=== PATIENT | female | born 1940 | race Caucasian/White ===

== ENCOUNTER 2018-03-11 15:27 | Emergency (ER) | payer OTHER, BC ==
[~2018-03-11] VITALS: Ht 154.9 cm; Wt 54.4 kg
--- NOTE | 2018-03-11 15:28 | NUR ---
PT BIBA TO BED 2 BY STRETCHER
[2018-03-11 15:30] VITALS: BP 178/93
--- NOTE | 2018-03-11 15:30 | NUR ---
78f biba with c/o hypoglycemia while working out at the gym. Per fire parts facilitator, BS=32 on scene. Patient ALOC confused and combative on scene. Negative MLAPSS on scene. Patient given D10 205cc en route. On arrival, bs=96. Pt is aox4 to person, place, situation, and date. gcs=15. No facial or smile asymmetry. Vinegar Maker equal and equal push/pull. PERRLA. Multiple abrasions to bl arms. Patient denies any neck,head, or back pain. ER MD Malone by bedside examining patient. Patient refused to change into gown. VSS. Will continue to monitor.
[2018-03-11] MEDS ORDERED: DEXT 5% / NACL 0.9% 500 ML IV ONE (15:35)
[2018-03-11] MEDS ORDERED: LOSA25TA22 PO (15:48)
[2018-03-11] MEDS ORDERED: METO25TE2 PO (15:48)
--- NOTE | 2018-03-11 16:02 | NUR ---
by bedside. awaiting discharge. gcs=15. rr are even and unlabored.
[2018-03-11 16:07] LABS: BASOPHILS # (AUTO) 0.1 K/uL (0.00-0.22); BASOPHILS % (AUTO) 1.6 % (0.0-2.0); EOSINOPHILS # (AUTO) 0.1 K/uL (0-0.4); EOSINOPHILS % (AUTO) 2.9 % (0.0-4.0); HEMATOCRIT 42.7 % (36-48); HEMOGLOBIN 14.1 g/dL (12.0-16.0); LYMPHOCYTES # (AUTO) 1.1 K/uL (2.5-16.5); LYMPHOCYTES % (AUTO) 24.6 % (20.5-51.1); MEAN CORPUSCULAR HEMOGLOBIN 31 pg (27-31); MEAN CORPUSCULAR HGB CONC 33 g/dL (33-37); MEAN CORPUSCULAR VOLUME 94.7 fL (80-94); MONOCYTES # (AUTO) 0.4 K/uL (0.8-1.0); MONOCYTES % (AUTO) 9.6 % (1.7-9.3); NEUTROPHILS # (AUTO) 2.7 K/uL (1.8-7.7); NEUTROPHILS % (AUTO) 61.3 % (42.2-75.2); PLATELET COUNT (AUTO) 143 K/uL (140-450); RED BLOOD CELL COUNT(AUTO) 4.51 MIL/uL (4.20-5.40); RED CELL DISTRIBUTION WIDTH 13.3 % (11.6-13.7); WHITE BLOOD COUNT (AUTO) 4.4 K/uL (4.8-10.8)
[2018-03-11 16:18] LABS: ANION GAP 11.2 (8-16); CARBON DIOXIDE 32.2 mmol/L (21-32); CHLORIDE 99 mmol/L (98-107); CREATININE 0.9 mg/dL (0.6-1.3); GLUCOSE 127 mg/dL (74-106); POTASSIUM 3.4 mmol/L (3.5-5.1); SODIUM SERUM 139 mmol/L (136-145); UREA NITROGEN, BLOOD 20 mg/dL (7-18)
[2018-03-11 16:20] LABS: APPEARANCE,URINE CLEAR (CLEAR); BILIRUBIN,URINE NEGATIVE (NEGATIVE); BLOOD, URINE 1+ (NEGATIVE); COLOR,URINE YELLOW (YELLOW); LEUKOCYTE ESTERASE ,URINE NEGATIVE (NEGATIVE); NITRITE, URINE NEGATIVE (NEGATIVE); PH,URINE 7.5 (5.0-9.0); UGLUCOSE TRACE (NEGATIVE)
[2018-03-11 16:23] LABS: RBC,URINE 3-10 (FEW) /HPF (0-5); WBC,URINE 0-5 (RARE) /HPF (0-5)
[2018-03-11 16:25] LABS: ASPARTATE AMINOTRANSFERASE 24 U/L (15-37); TOTAL BILIRUBIN 0.4 mg/dL (0.0-1.0)
[2018-03-11 16:57] VITALS: BP 169/97
--- NOTE | 2018-03-11 16:57 | NUR ---
Patient discharged with v/s stable. Written and verbal after care instructions given and explained. Patient verbalized understanding. Carried with steady gait. All questions addressed prior to discharge. Advised to follow up with PMD.
--- NOTE | 2018-03-11 16:57 | NUR ---
iv catheter intact; bleeding controlled; dressing applied.
== END 2018-03-11 16:57 | disposition home or self-care (01) ==
LOC: MED 15:27
DX: E11.649 Type 2 diabetes mellitus with hypoglycemia without coma (principal); E07.9 Disorder of thyroid, unspecified; Z88.0 Allergy status to penicillin; Z88.1 Allergy status to other antibiotic agents; Z79.899 Other long term (current) drug therapy
CPT/HCPCS: 36415; 80053; 81001; 84484; 85025; 93005; 96360; 99285; J7060